=== PATIENT | female | born 1960 | race Caucasian/White ===

== ENCOUNTER 2018-12-14 06:57 | Day surgery (SDC) | payer OTHER ==
[~2018-12-14 06:57] MED LIST: INTESTINEX680 MG PO; LIOTHYRONINE S25 MCG PO; NORFLEX100MG PO; SYNTH PO; ULTRACET PO
== END 2018-12-14 11:45 | disposition home or self-care (01) ==
LOC: AMB-ENDOS 06:57
DX: K64.8 Other hemorrhoids (principal)